=== PATIENT | female | born 2000 | race Caucasian/White ===

== ENCOUNTER 2020-08-31 08:25 | Inpatient (IN) | payer SELFPAY ==
[2020-08-31] VITALS (19 sets, daily range): BP systolic 99–140; BP diastolic 47–88; PULSE 77–108; RESP 14–20; TEMP 36.3–38.2; O2SAT 93–100; BMI 31.1
[2020-08-31] MEDS: Lactated Ringers 1,000 ML 999 ML IV (08:30)
[2020-08-31 08:58] LABS: Absolute Lymphocyte Count 1.08 X10^3/uL (0.83-4.51); Absolute Neutrophil Count 21.5 X10^3/uL (2.0-7.7); Basophil# 0.05 X10^3/uL; Basophil% 0.2 % (0-1); Hematocrit 41.3 % (37-47); Hemoglobin 14.2 g/dL (12.0-15.0); Lymphocyte # 1.08 X10^3/ul (4.0); Lymphocyte % 4.4 % (19-41); Mean Corp Hgb Conc 34.4 g/dL (32-36); Mean Corpuscular Hgb 32.1 pg (27.0-32.0); Mean Corpuscular Volume 93.2 fL (81-99); Mean Platelet Vol. 9.3 fl (6.2-12.0); Monocyte# 1.58 X10^3/uL; Monocyte% 6.4 % (0-10); NRBC Flagged by Analyzer 0 % (0-5); Neutrophil % 87.8 % (47-70); POSITIVE DIFFERENTIAL YES; Platelet Count 238 K/mm3 (150-450); RBC Distribution Width CV 12.1 % (11.6-14.6); RBC Distribution Width SD 41.5 fl (35.1-43.9); Red Blood Count 4.43 M/mm3 (4.2-5.4); White Blood Count 24.5 K/mm3 (4.4-11.0)
[2020-08-31 08:59] LABS: Differential Indicated SCAN CRITERIA MET
[2020-08-31] MEDS: Sodium Citrate/Citric Acid 30 ML UDC PO (09:17)
[2020-08-31] MEDS: Acetaminophen 500 MG Tablet 1000 MG PO ×2 (09:17→16:02)
--- NOTE | 2020-08-31 09:24 | HP.PCM_ITS ---
History Date of Admission: 08/31/20 Final ZHANE: 08/15/20 Gestational age: 42 Weeks and 2 Days History of this : Patient presents with bricklayer helper. Her water broke at noon yesterday and was minimal. She has been pushing all night & not making further progress. Patient & reinsurance clerk deny issues. Allergies No Known Allergies Allergy (Verified 08/31/20 08:50) Home Medications: Home Medications Vits [Prenatabs FA ] 08/31/20 Smoking Status: Never smoker Number of Fetus(es): 1 NST - FHR Rate Baby A Baseline: 140 Variability:: Minimal Decelerations:: None History Past Pregnancies: Past Pregnancies Delivery Date Name GA/ Weeks Outcome Route Wt Infant Sex Labor Length Anesthesia Delivery Location Provider FOB Labs: Care with bricklayer helper, no formal PNC Physical Exam Vitals: Vital Signs Temp Pulse Resp BP Pulse Ox 98.8 F 104 H 18 140/88 H 99 08/31/20 09:07 08/31/20 09:14 08/31/20 09:07 08/31/20 09:07 08/31/20 09:14 General: Alert, Oriented x3 Abdomen: Bowel Sounds Present, Gravid Neurological: Cranial nerves II-XII grossly intact HOUSING QUALITY STANDARD INSPECTOR: Normal external genitalia Estimated gestational size: Appropriate for gestational size Cervix Dilation (cm): 10 Station: 0 Effacement (%): 100 Assessment/Plan This is a 20 year-old, G1, P0, at 42&2 weeks gestational age. Admit to L&D MOD - recommend primary for failure to descend. Patient & agree with plan. Counseled on R/B/A & informed consent signed. ID - pre-op ancef & azithromycin ordered. FWB - peds at delivery for 42+ week fetus with meconium fluid. Pre-op COVID swab. Routine care.
[2020-08-31 09:29] LABS: Differential Comment SCANNED
[2020-08-31] MEDS: Cefazolin 2 GM in 0.9% Normal Saline 100 ML IV (09:45)
[2020-08-31] MEDS: Methylergonovine 0.2 MG/ML Ampul IM (10:00)
[2020-08-31 10:20] LABS: Rubella IgG Non-Reactive (Nonreactive); Syphilis Antibodies Non-reactive
[2020-08-31 10:42] LABS: HIV - WCH Non-Reactive (Nonreactive); Hepatitis B Surface Antigen Non-Reactive (Nonreactive); Hepatitis C Antibody Non-Reactive (Nonreactive)
--- NOTE | 2020-08-31 10:42 | CPS ---
cord gases were run. No critical values on card venous gas. Not enough blood was given to run cord arterial gas, RN aware
--- NOTE | 2020-08-31 10:57 | PCM.OPRPT ---
Report of Operation Surgery/Procedure Performed:: Primary low transverse section Description of Surgical Findings:: Normal maternal uterus and adnexa Delivery Classification: REKHA Final ZHANE: 08/15/20 Gestational age: 42 Weeks and 2 Days identity management developer: Melina Rogers Type of Anesthesia:: Spinal Date of Procedure: 08/31/20 Pre-Operative Diagnosis: (1) Post-dates (2) Failure to descend Post-Operative Diagnosis: Same Indications: Patient presented with guitar player after pushing for 10+ hours. She was C/C/0to+1 with significant caput. Indications for : Failure of Descent Description of Procedure: Patient taken to OR where spinal anesthesia was placed. She was prepped and draped in the normal sterile fashion in a dorsal supine position with a leftward tilt. After ensuring adequacy of anesthesia the Pfannensteil skin incision was made and carried through to the underlying fascia with a scalpel. The fascia was incised in the midline and carried laterally with the Downs scissors. The rectus muscles were in the midline and the peritoneum was entered bluntly. The bladder flap was dissected down carefully with the Metzenbaum scissors and blunt dissection. The uterus was incised in a transverse fashion and then incision extended with cephalocaudad traction. head was elevated vaginally by staff educator. The head was elevated to the uterine incision and then disengaged. Fetus was then rotated to breech. 's buttocks grasped and then the was delivered via typical breech maneuvers. delivered and 3VC clamped & cut. Then the infant was handed off to the waiting RN. The placenta was delivered with gentle traction and fundal massage and the uterus was exteriorized and cleared of all clots and debris. The uterine incision was closed with 2 - 1 vicryl sutures in a running locked fashion. The bovie was used to further obtain further hemostasis of the uterine incision. A second imbricating layer of monocryl was placed. 1 additional figure of 8 suture placed to obtain excellent hemostasis. The uterus was returned to the peritoneal cavity. The pelvis was irrigated & then cleared of all clots and debris. The uterine incision was reexamined and found to be hemostatic. Some shadia was placed over the uterine incision due to the denuded areas. Peritoneum was closed in running fashion. Shadia placed over denuded (but hemostatic) peritoneum & rectus muscle. The fascia was closed with PDS suture in a running standard fashion. The subcutaneous tissue was examined & any bleeding bovie cauterized. The subcutaneous tissue was reapproximated with plain gut suture. The skin was closed in a subcuticular fashion by the NANNY BABYSITTER with me present in the labor and delivery suite. I performed the remainder of the procedure with assistance. Start time: 9:44am Stop time: 10:44am Amniotic Membrane Rupture Type: Spontaneous Amniotic Fluid Description: Moderate meconium Placenta Disposition: [facility] Drain: Rivas to straight drain Fluids Replaced: 1550ml Cord Entanglement: None Cord Vessel Description: 3 Vessels Esitmated Blood Loss (ml): 900ml Gender: Male - Eric, weight = 3115g (1 minute): 3 (5 minute): 8 - 9 at 10 minutes Delayed cord clamping: No Antibiotic Given: Ancef 2 grams IV x1, Zithromax 500 mg/5 mL X1
[2020-08-31] MEDS: Ketorolac 30 MG/ML Syringe IV (11:16)
[2020-08-31] MEDS: Oxytocin 30 units/NS 500 ml 30 UNITS/500 ML IV.SOLN 167 UNITS IV (11:16)
[2020-08-31] MEDS: Lactated Ringers 1,000 ML 100 ML IV (14:15)
--- NOTE | 2020-08-31 16:38 | PN.OBGYN_ITS ---
Subjective: Patient denies complaints - Physical Exam Vitals/I&O's: Vital Signs Temp Pulse Resp BP Pulse Ox 100.7 F H 92 16 99/51 L 95 08/31/20 15:00 08/31/20 15:00 08/31/20 15:00 08/31/20 15:00 08/31/20 15:00 Oxygen Delivery Method Room Air Weight: 170 lb Body Mass Index (BMI) 31.1 Intake and Output for Last 24 Hours 08/29/20 08/30/20 08/31/20 23:59 23:59 23:59 Intake Total 1863.22 / 1863.22 Output Total 1250 / 1250 Balance 613.22 / 613.22 General: Alert, Oriented x3 Microbiology Past 72 Hours 08/31/20 12:30 Mucosa - Nose SARS-CoV-2 Antigen (Rapid) - Final Laboratory Results 08/31/20 08:30: WBC 24.5 H, RBC 4.43, Hgb 14.2, Hct 41.3, MCV 93.2, MCH 32.1 H, MCHC 34.4, RDW Std Deviation 41.5, RDW Coeff of Sarika 12.1, Plt Count 238, MPV 9.3, Immature Gran % (Auto) 1.200 H, Neut % (Auto) 87.8 H, Lymph % (Auto) 4.4 L, Dolores % (Auto) 6.4, Eos % (Auto) 0.0, Baso % (Auto) 0.2, Absolute Neuts (auto) 21.5 H, Absolute Lymphs (auto) 1.08, Nucleated RBC % 0, Differential Comment SCANNED, Diff Path Review October08/31/20 08:30: Blood Type A POSITIVE, Antibody Screen NEGATIVE 08/31/20 09:15: Syphilis Total Ab Non-reactive, Rubella IgG Antibody Non- Reactive 08/31/20 09:15: Hep Bs Antigen Non-Reactive, Hepatitis C Antibody Non-Reactive, HIV 1&2 Antibody Non-Reactive Current Medications Acetaminophen (Acetaminophen 500 Mg Tablet) 1,000 mg PO Q6H [facility] Bisacodyl (Bisacodyl 10 Mg Suppository) 10 mg RC UD PRN PRN Reason: If no BM Diphenhydramine HCl (Diphenhydramine 25 Mg Capsule) 25 mg PO Q6H PRN PRN PRN Reason: ITCHING Stop: 09/01/20 11:15 Hydrocortisone (Hydrocortisone 2.5% Crm) 1 applic TOPICAL TID PRN PRN; Protocol PRN Reason: Discomfort Lactated Ringer's () 1,000 mls @ 100 mls/hr IV .Q10H [facility] Last Admin: 08/31/20 14:15 Dose: 100 mls/hr Documented by: Clindamycin Phosphate 900 mg/ (Dextrose) 106 mls @ 150 mls/hr IV Q8H [facility] Ampicillin Sodium 2 gm/ Sodium (Chloride) 100 mls @ 200 mls/hr IV Q6H [facility] Last Admin: 08/31/20 16:02 Dose: 200 mls/hr Documented by: Ibuprofen (Ibuprofen 600 Mg Tablet) 600 mg PO Q6H [facility] Ketorolac Tromethamine (Ketorolac 30 Mg/Ml Syringe) 30 mg IV Q6H [facility] Stop: 09/01/20 05:31 Last Admin: 08/31/20 11:16 Dose: 30 mg Documented by: Methylergonovine Maleate (Methylergonovine 0.2 Mg/Ml Ampul) 0.2 mg IM X1 PRN PRN Reason: Uterine Atony Last Admin: 08/31/20 10:00 Dose: 0.2 mg Documented by: Nalbuphine HCl (Nalbuphine 10 Mg/Ml Ampul) 5 mg IV Q3H PRN PRN PRN Reason: ITCHING Stop: 09/01/20 11:15 Naloxone HCl (Naloxone 0.4 Mg/Ml Syringe) 0.02 mg IV Q1M PRN PRN Reason: RR <10 and pt unresponsive Ondansetron HCl (Ondansetron 4 Mg/2 Ml Vial) 4 mg IV Q4H PRN PRN PRN Reason: Nausea Oxycodone HCl (Oxycodone 5 Mg Tablet) 5 - 10 mg PO Q4H PRN PRN PRN Reason: Pain Score 4-10 Prochlorperazine Edisylate (Prochlorperazine 10 Mg/2 Ml Vial) 10 mg IV Q6H PRN PRN PRN Reason: NAUSEA Senna/Docusate Sodium (Senna/Docusate Sodium 1 Tablet) 1 - 2 tablet PO DAILY [facility] Simethicone (Simethicone 80 Mg Tablet) 80 mg PO PCHS PRN PRN Reason: Indigestion/stomach pain Sodium Chloride (0.9% Saline Lock 10 Ml Syringe) 5 - 15 ml IV UD PRN PRN Reason: SALINE FLUSH Medical Necessity - Tobacco Use Smoking Status: Never smoker Assessment/Plan 20yo female POD#0 s/p primary ID - patient with temp of 100.7 and prolonged rupture of membranes. Suspect endometritis and thus triple antibiotics ordered. Plan of care discussed with patient & her . All questions answered. - discussed surgery & all questions answered.
--- NOTE | 2020-08-31 19:10 | NURSING ---
1705(Late Entry) pt and spouse state that they do not want the pt to receive anymore antibiotics. they do not believe they are necessary and feel that the supplements they have at home will be enough. Education provided to pt and spouse on potential consequences of untreated infection and benefits of antibiotics vs supplements. both pt and spouse continue to state they do not want anymore antibiotics. They also state they plan to go home tomorrow at lunch time. pt and spouse informed that I will call Dr. Doty to notify her of their wishes.
--- NOTE | 2020-08-31 19:15 | NURSING ---
1805 (Late Entry) pt and spouse notified that Dr. Doty would like to talk to their senior genetic counselor if they consent. both pt and spouse state they are okay with Dr. Doty talking with Georges, carpet tile layer
--- NOTE | 2020-08-31 21:45 | NURSING ---
Pt stated she spoke to her acquisition editor, pt is still refusing all medications including antibiotics
[2020-09-01 00:11] VITALS: BP 91/46; PULSE 95; RESP 16; TEMP 36.9; O2SAT 99
[2020-09-01 04:00] VITALS: BP 98/52; PULSE 108; RESP 16; TEMP 37.1
[2020-09-01 05:47] LABS: Hemoglobin 11.8 g/dL (12.0-15.0); Mean Corp Hgb Conc 33.7 g/dL (32-36); Mean Corpuscular Hgb 31.8 pg (27.0-32.0); Mean Corpuscular Volume 94.3 fL (81-99); Mean Platelet Vol. 9.1 fl (6.2-12.0); Platelet Count 159 K/mm3 (150-450); RBC Distribution Width CV 12.2 % (11.6-14.6); RBC Distribution Width SD 42.5 fl (35.1-43.9); Red Blood Count 3.71 M/mm3 (4.2-5.4); White Blood Count 15.2 K/mm3 (4.4-11.0)
[2020-09-01 08:55] VITALS: BP 97/61; PULSE 112; RESP 18; TEMP 37.9; O2SAT 96
[2020-09-01 09:00] VITALS: TEMP 37.9
--- NOTE | 2020-09-01 09:05 | PCM.PN.OB ---
Subjective: Patient reports feeling well. She continues to have fevers. She continues to be tender. Tolerating regular diet without nausea or vomiting. Ambulating voiding without difficulty. Lochia normal. She requests discharge today. - Physical Exam Vitals/I&O's: Vital Signs Temp Pulse Resp BP Pulse Ox 98.7 F 108 H 16 98/52 L 99 09/01/20 04:00 09/01/20 04:00 09/01/20 04:00 09/01/20 04:00 09/01/20 00:11 Oxygen Delivery Method Room Air Weight: 170 lb Body Mass Index (BMI) 31.1 Intake and Output for Last 24 Hours 08/30/20 08/31/20 09/01/20 23:59 23:59 23:59 Intake Total 3682.80 / 3682.80 536.67 / 536.67 Output Total 1999 / 0 400 / 400 Balance 1682.80 / 1282.80 136.67 / 136.67 General: Alert, No apparent distress Abdomen: Soft, Non-Distended, - - FF@U and significantly tender Extremities: No edema, No Calf Tenderness Skin: No rashes Neurological: Neuro grossly intact Psych/Mental Status: Normal Affect, Appropriate Microbiology Past 72 Hours 08/31/20 12:30 Mucosa - Nose SARS-CoV-2 Antigen (Rapid) - Final Laboratory Results 08/31/20 08:30: Differential Comment SCANNED, Diff Path Review October08/31/20 08:30: Blood Type A POSITIVE, Antibody Screen NEGATIVE 08/31/20 09:15: Syphilis Total Ab Non-reactive, Rubella IgG Antibody Non-Reactive 08/31/20 09:15: Hep Bs Antigen Non-Reactive, Hepatitis C Antibody Non-Reactive, HIV 1&2 Antibody Non-Reactive 09/01/20 05:40: WBC 15.2 H, RBC 3.71 L, Hgb 11.8 L, Hct 35.0 L, MCV 94.3, MCH 31.8, MCHC 33.7, RDW Std Deviation 42.5, RDW Coeff of Sarika 12.2, Plt Count 159, MPV 9.1 Current Medications Acetaminophen (Acetaminophen 500 Mg Tablet) 1,000 mg PO Q6H [facility] Last Admin: 09/01/20 04:46 Dose: Not Given Documented by: Bisacodyl (Bisacodyl 10 Mg Suppository) 10 mg RC UD PRN PRN Reason: If no BM Diphenhydramine HCl (Diphenhydramine 25 Mg Capsule) 25 mg PO Q6H PRN PRN PRN Reason: ITCHING Stop: 09/01/20 11:15 Hydrocortisone (Hydrocortisone 2.5% Crm) 1 applic TOPICAL TID PRN PRN; Protocol PRN Reason: Discomfort Lactated Ringer's () 1,000 mls @ 100 mls/hr IV .Q10H [facility] Last Admin: 09/01/20 00:26 Dose: Not Given Documented by: Clindamycin Phosphate 900 mg/ (Dextrose) 106 mls @ 150 mls/hr IV Q8H [facility] Last Admin: 09/01/20 00:52 Dose: Not Given Documented by: Ampicillin Sodium 2 gm/ Sodium (Chloride) 100 mls @ 200 mls/hr IV Q6H [facility] Last Admin: 09/01/20 04:46 Dose: Not Given Documented by: Ibuprofen (Ibuprofen 600 Mg Tablet) 600 mg PO Q6H [facility] Methylergonovine Maleate (Methylergonovine 0.2 Mg/Ml Ampul) 0.2 mg IM X1 PRN PRN Reason: Uterine Atony Last Admin: 08/31/20 10:00 Dose: 0.2 mg Documented by: Nalbuphine HCl (Nalbuphine 10 Mg/Ml Ampul) 5 mg IV Q3H PRN PRN PRN Reason: ITCHING Stop: 09/01/20 11:15 Naloxone HCl (Naloxone 0.4 Mg/Ml Syringe) 0.02 mg IV Q1M PRN PRN Reason: RR <10 and pt unresponsive Ondansetron HCl (Ondansetron 4 Mg/2 Ml Vial) 4 mg IV Q4H PRN PRN PRN Reason: Nausea Oxycodone HCl (Oxycodone 5 Mg Tablet) 5 - 10 mg PO Q4H PRN PRN PRN Reason: Pain Score 4-10 Prochlorperazine Edisylate (Prochlorperazine 10 Mg/2 Ml Vial) 10 mg IV Q6H PRN PRN PRN Reason: NAUSEA Senna/Docusate Sodium (Senna/Docusate Sodium 1 Tablet) 1 - 2 tablet PO DAILY [facility] Simethicone (Simethicone 80 Mg Tablet) 80 mg PO PCHS PRN PRN Reason: Indigestion/stomach pain Sodium Chloride (0.9% Saline Lock 10 Ml Syringe) 5 - 15 ml IV UD PRN PRN Reason: SALINE FLUSH Medical Necessity - Tobacco Use Smoking Status: Never smoker Assessment/Plan Patient is postoperative day 1 from a section. She received her care by a playground aide and had a prolonged labor. Concern for endometritis. The patient continues to be febrile with significant uterine tenderness. Had a lengthy discussion with the patient and her partner about likely infection. Discussed importance of treatment with antibiotics. Discussed that if this infection is not treated with antibiotics it could progress to worsening infection, sepsis, hemorrhage, maternal , need for hysterectomy. The patient and her significant other continue to refuse antibiotics and care. They are asking about alternative treatment options that they can do at home. Discussed that I do not recommend any alternative treatment options and that I recommend staying in the hospital for IV antibiotics for treatment of this infection. Again discussed importance of this and risks of them leaving the hospital. Discussed that I will not place a discharge order as she is not safe to be discharged, and her condition can worsen. She states understanding of all of this and requests to leave AGAINST MEDICAL ADVICE. She understands by signing paperwork to leave the hospital that she is leaving against our medical advice, and she understands that she is putting herself at risk of hemorrhage, sepsis, worsening infection, need for hysterectomy, and . She has signed AMA paperwork.
--- NOTE | 2020-09-01 10:30 | CASEMGMT ---
Social Work Note - Labor and Delivery Unit Social Work Brief Assessment completed. Refer documentation below for further details. Date of Referral/Notification: 08.31.2020 Time of Referral: 0849 Referred By: Dr. Fortino Doty Reason for Referral: Resources Date of Intervention: 09.01.2020 Time of Intervention: 1030 Informant: Medical record and patient/mother of baby (MOB) Molly Redding; father of baby (FOB) Jose Redding present for part of conversation. History: Spoke with nursing staff and initial referral placed for resources, as at admission the parents did not have a car seat for baby. At this time, there is a car seat present in the room. Concern per nursing is that MOB and FOB are planning to leave today, so MOB will be signing out Against Medical Advice. Met with MOB and FOB in room together and then alone with the MOB. JERMAINE, age 22, is to the FOB since July 2019. Baby Eric (born 08.31.2022) is the first child for both parents. care with screenplay writer, Ninfa Albarran. Transfer of care to hospital after extended labor at home. After time of laboring in the hospital as well, delivery ultimately via REKHA caesarian section. Baby delivered at 6 pounds 14 ounces, Agars 3-8-9 at 1-5-10 minutes respectively. MOB and FOB are from the [facility]. 8th grade education for both, horse and buggy for transportation unless hiring a sales route driver helper. MOB denies any history of depression or anxiety, no history of suicidal thoughts. Denies any history of substance use issues. Denies any abuse with the FOB, no control, intimidation or other abuse reported or endorsed. Assessment: Met with the MOB and FOB together and then had FOB step out of the room for depression screening. FOB did so willingly. Depression screen a 6. Reviewed with MOB signs and symptoms, as well as the idea of distress, that if symptoms become distressing it is important to seek out additional help and support. MOB reports would speak first with the FOB for support. Also addressed postparutm depression while FOB in room. During discussion together, the FOB voiced that the family has been happy with the hospital and the care provided, as well as acknowledged that choosing to leave before the hospital feels MOB is ready. FOB reports there are natural herbs and supplements in the [facility] culture that work well for what MOB is going through, that FOB's father and grandfather know about. FOB reports that if the traditional methods of treatment with the [facility] do not work then would bring the MOB back to the hospital. This science writer gently broached that MOB's health is important, so also important to the entire family system that MOB's health needs are also cared for. FOB expressed understanding of this. Offered a free nurse visit program through the [facility], as this nurse can also check on MOB. MOB and FOB declined referral reporting that the inspector pawnshop detail will be to the home tomorrow to check on everyone. When talking alone with the MOB, this science writer broached with MOB as to MOB's comfort level with plan, reiterating that only asking due to care and concern for the MOB. MOB reports to feel comfortable with plan to leave today and desires to go home. MOB reports would come back to hospital if needed. FOB will be at home to help MOB with baby, and the MOB's sisters will be coming to be helpers as well. MOB and FOB report to have needed supplies for the baby, including car seat, clothing, diapers, wipes, and will be using a crib provide by the MOB's parents. This science writer observed FOB to handle the baby. FOB was attentive and appropriate in care of . MOB will have help in care of the baby from the FOB and from MOB's sisters. MOB and FOB reports baby's care needs will be met and assisted with as MOB recovers. Plan: MOB and baby to discharge home when ready. FOB will be at home to help with transition home. Provided parents with resource for mood and anxiety disorders. [facility] resources given. -MALENA Montelongo, ADVERTISING OPERATIONS COORDINATOR
--- NOTE | 2020-09-01 11:00 | NURSING ---
0900 Dr. Sepulveda at bedside to evaluate pt. Aware of pt vital signs, tender abdomen, and pt and refusal of all meds at this time. Thorough discussion per her with pt and regarding recommended treatments, meds, and possible complications with leaving hospital AMA without treatment. Pt. verbalizing that they prefer to treat at home with herbs and other supplements and to see how that goes. Both patient and verbalizing that they understand that discharge today would be against the advice of the physician.
[2020-09-01 11:37] LABS: Pathologist Review Reviewed
[2020-09-01 11:46] VITALS: BP 105/55; PULSE 119; RESP 32; TEMP 38.1; O2SAT 96
[2020-09-01] MEDS: Acetaminophen 500 MG Tablet 1000 MG PO (12:02)
[2020-09-01] MEDS: Ibuprofen 600 MG Tablet PO (12:02)
[2020-09-01] MEDS: Senna/Docusate Sodium 1 Tablet PO (12:02)
--- NOTE | 2020-09-01 12:18 | NURSING ---
Dr. Sepulveda on unit and aware of VS and pt status. Pt. has signed AMA papers for discharge and has stated plan is to take tylenol or ibuprofen at home with assistant women's soccer coach follow up tomorrow in their home. Verbalized understanding to signs of complications and AMA discharge.
== END 2020-09-01 13:40 | disposition left against medical advice (07) | DRG 788 ==
PROVIDERS: Admitting Provider Obstetrics & Gynecology; Referring Provider Obstetrics & Gynecology; Visit Provider Obstetrics & Gynecology
DX: O32.4XX0 Maternal care for high head at term, not applicable or unspecified (principal); Z37.0 Single live birth; O48.0 Post-term pregnancy; Z3A.42 42 weeks gestation of pregnancy; O77.0 Labor and delivery complicated by meconium in amniotic fluid
CPT/HCPCS: 59050; 85025; 85027; 86703; 86762; 86803; 86850; 86900; 86901; 87340; 87426; 99218; 99251; J7120; G0378; G0463; J2405